=== PATIENT | female | born 1965 | race Caucasian/White ===

== ENCOUNTER → 2016-11-07 | Outpatient (CLI) | payer MEDICAID ==
[~2016-11-07] MED LIST: ATRV10T; CARI350T27; DIAZ5TAB3; METH10TA8; PREN1TAB4; PROP-33; TRAM50TA2
--- NOTE | 2016-11-07 20:03 | Diagnostic Imaging Report ---
EXAMINATION: Transabdominal and transvaginal pelvic ultrasound. INDICATION: Abnormal uterine bleeding. FINDINGS: The uterus is 6.5 x 4.1 x 3.6 cm. The endometrial stripe is 0.5 cm in thickness. The myometrium demonstrates no discrete focal lesion. The right ovary is 2.1 x 2.1 x 1.2 cm. The left ovary is 3.3 x 3.8 x 2.5 cm. Within the left ovary, there is a septated hypoechoic lesion measuring 3.4 x 2.1 x 2.6 cm, likely related to a hemorrhagic cyst. Arterial and venous waveforms are demonstrated over both ovaries. IMPRESSION: 3.4 cm hypoechoic lesion is seen in the left ovary, likely representing a hemorrhagic cyst. Dictated by: Dictated on workstation # [id number]
--- NOTE | 2016-11-08 19:23 | Diagnostic Imaging Report ---
Bilateral screening mammogram 2D views with tomosynthesis The current study was also evaluated with a Computer Aided Detection (CAD) system. Indication: Screening. No current complaints stated on the questionnaire. COMPARISON: 03/28/12. FINDINGS: The breasts are composed of heterogeneously dense parenchyma which may decrease mammographic sensitivity. There are clustered calcifications seen in the upper aspect of the right breast with slight architectural distortion concerning for underlying malignancy. The left breast demonstrates no definite change but is very dense. IMPRESSION: 1. Concerning calcifications and architectural distortion is seen in the upper aspect of the right breast. Focal compression view and ultrasound evaluation is recommended. 2. Also ultrasound evaluation of the left breast would be helpful based on its increased density. ACR BI-RADS Category 0: Incomplete. (Needs additional imaging evaluation). Result letter will be mailed to the patient. Note: At least 10% of breast cancer is not imaged by mammography. Dictated by: Dictated on workstation # [id number]
== END ==
LOC: RAD 12:58
PROVIDERS: ATTEND Nurse Practitioner
DX: Z12.31 Encounter for screening mammogram for malignant neoplasm of breast (principal); N83.9 Noninflammatory disorder of ovary, fallopian tube and broad ligament, unspecified; N93.9 Abnormal uterine and vaginal bleeding, unspecified
CPT/HCPCS: 76830; 76856; 77067

== ENCOUNTER → 2016-11-09 | Outpatient (CLI) | payer MEDICAID ==
--- NOTE | 2016-11-09 12:40 | Diagnostic Imaging Report ---
PROCEDURE: MR imaging of the brain without contrast. TECHNIQUE: Multiplanar, multisequence MR imaging of the brain was performed without contrast. INDICATION: Chronic migraine. Headache. FINDINGS: There is no diffusion restriction to suggest an acute infarct or other diffusion abnormality. There are minimal white matter T2 signal hyperintense lesions in the periventricular and deep white matter. No significant mass effect or brain edema. This may relate to chronic microvascular ischemic changes. There is no hydrocephalus. No extra-axial fluid collection is seen. The pituitary gland is normal in size. No hypothalamic or pineal region mass is seen. The central vascular flow-voids appear grossly unremarkable. The orbits and paranasal sinuses appear grossly unremarkable. IMPRESSION: White matter findings are probably secondary to mild chronic microvascular ischemic changes. Dictated by: Dictated on workstation # [id number]
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
== END ==
LOC: RAD 10:43
PROVIDERS: ATTEND Family Medicine
DX: M71.38 Other bursal cyst, other site; R51 Headache
CPT/HCPCS: 70551; 72148

== ENCOUNTER → 2016-11-24 | Outpatient (CLI) | payer MEDICAID ==
--- NOTE | 2016-11-24 10:42 | Diagnostic Imaging Report ---
EXAMINATION: Bilateral breast ultrasound. INDICATION: Architectural distortion in the upper aspect of the right breast and calcifications. Dense breasts on the left side. Technique: All four quadrants and the retroareolar region were examined on this study. FINDINGS: At the 6:00 zone in the left breast, 3 cm from the nipple there is an indeterminate hypoechoic lesion with no internal vascularity seen. This is measuring 5 mm in size. Etiology is indeterminate. No definitive through transmission. The left breast demonstrate otherwise no suspicious lesion with focally dilated duct or elongated small cyst at 1:30 o'clock position demonstrated. The right breast demonstrate an irregular hypoechoic poorly defined mass at 10:30 o'clock position 3 cm from the nipple. There is shadowing gas seen with no internal vascularity identified. IMPRESSION: 1. Right breast irregular poorly defined mass at 10:30 o'clock position at 3 cm from the nipple is concerning for malignancy. 2. Indeterminate 5 mm nodule in the left breast at 6:00 zone 3 cm from the nipple. Although this is not highly suspicious, the presence of a probable cancer on the contralateral side increases the risk for other malignancies and a biopsy of this lesion is also recommended. RECOMMENDATIONS: Bilateral ultrasound-guided biopsies. The findings and recommendations were discussed with the patient personally just before this dictation. BI-RADS 4C. ACR BI-RADS Category 4C: Moderate suspicion of malignancy. Report was faxed to office of Becki Evans by abelino at 10:44 a.m. Dictated by: Dictated on workstation # [id number]
--- NOTE | 2016-11-24 21:04 | Diagnostic Imaging Report ---
Right breast diagnostic mammogram with tomography. The current study was also evaluated with a Computer Aided Detection (CAD) system. INDICATION: Architectural distortion and calcification seen in the upper aspect of the right breast. FINDINGS: There is persistent architectural distortion concerning for underlying mass seen in the central slightly superior aspect of the right breast with slightly heterogenous microcalcifications seen. IMPRESSION: Concerning persistent architectural distortion in the central slightly superior aspect of the right breast. Ultrasound evaluation pending. ACR BI-RADS Category 0: Incomplete. (Needs additional imaging evaluation). Result letter will be mailed to the patient. Note: At least 10% of breast cancer is not imaged by mammography. Dictated by: Dictated on workstation # [id number]
== END ==
LOC: RAD 09:09
PROVIDERS: ATTEND Nurse Practitioner
DX: N63.10 Unspecified lump in the right breast, unspecified quadrant (principal); N63.20 Unspecified lump in the left breast, unspecified quadrant

== ENCOUNTER → 2016-11-28 | Outpatient (CLI) | payer MEDICAID ==
[~2016-11-28] VITALS: Ht 172.7 cm; Wt 102.1 kg
[~2016-11-28] MED LIST changes: +LIDOCAINE 1% INJ 20 ML (XYLOCAINE) VIAL INJ ONE
[2016-11-28 10:53] VITALS: BP 138/90
--- NOTE | 2016-11-28 17:07 | Diagnostic Imaging Report ---
EXAMINATION: Ultrasound-guided biopsy of a breast mass. A metallic clip placed to elvira biopsy site. INDICATION: 10:30 right breast mass. CONSENT: Informed consent was obtained from the patient. The risks, benefits, potential complications and alternatives were reviewed and all questions answered to the patient's satisfaction. FINDINGS: Ultrasound images demonstrate a suspicious right breast mass. PROCEDURE: After sterile preparation and draping, 1% lidocaine was utilized for local anesthesia. A 13-gauge guide needle was introduced under live ultrasound guidance to the level of the lesion. Good needle position was documented with ultrasound images. 14-gauge biopsy needle was utilized and core biopsies were performed. Multiple samples were obtained and sent to pathology. A metallic clip was placed to elvira the site of the biopsy. A subsequent mammogram is performed and confirms the proper positioning of the clip. The patient tolerated the procedure well with no immediate complications. IMPRESSION: Successful ultrasound-guided core biopsy of 10:30 right breast mass. Dictated by: Dictated on workstation # [id number]
--- NOTE | 2016-11-28 17:08 | Diagnostic Imaging Report ---
EXAMINATION: Vacuum-assisted ultrasound-guided biopsy of breast mass left. A metallic clip placed to elvira biopsy site. INDICATION: Left breast mass. CONSENT: Informed consent was obtained from the patient. The risks, benefits, potential complications and alternatives were reviewed and all questions answered to the patient's satisfaction. FINDINGS: Ultrasound images demonstrate left breast mass at 6:00 zone, 3 CM from the nipple. PROCEDURE: After sterile preparation and draping, 1% lidocaine was utilized for local anesthesia. A vacuum-assisted biopsy device with 14-gauge needle was introduced under live ultrasound guidance into the lesion. Good needle position was documented with ultrasound images. A metallic clip was placed to elvira the site of the biopsy. A subsequent mammogram is performed and confirms the proper positioning of the clip. Multiple samples were obtained and sent to pathology. The patient tolerated the procedure well with no immediate complications. IMPRESSION: Successful ultrasound-guided biopsy of 6:00 left breast mass at 2-3 CM from the nipple. A metallic clip placed to elvira biopsy site. Dictated by: Dictated on workstation # [id number]
--- NOTE | 2016-11-28 20:17 | Diagnostic Imaging Report ---
Bilateral diagnostic mammogram. INDICATION: Documentation of clip position after ultrasound-guided biopsy in both breasts. The current study was also evaluated with a Computer Aided Detection (CAD) system. FINDINGS: In the right breast there is a clip marking the area of biopsy performed by ultrasound and it does correspond to the region of abnormality on mammography with increased density and abnormal calcifications. On the left side, the lesion was seen only on sonography with the marking clip corresponds to a central slightly inferior aspect of the left breast. IMPRESSION: Satisfactory clip placement after ultrasound-guided biopsy bilaterally. Pathology results are pending. ACR BI-RADS Category 0: Incomplete. (Needs additional imaging evaluation). Result letter will be mailed to the patient. Note: At least 10% of breast cancer is not imaged by mammography. Dictated by: Dictated on workstation # [id number]
== END ==
LOC: RAD 10:25
PROVIDERS: ATTEND Nurse Practitioner
DX: N63.10 Unspecified lump in the right breast, unspecified quadrant (principal); N63.20 Unspecified lump in the left breast, unspecified quadrant
CPT/HCPCS: 19083; 77066

== ENCOUNTER → 2016-12-12 | Outpatient (CLI) | payer MEDICAID ==
[~2016-12-12] MED LIST changes: +GADOBUTROL 10 MMOL/10 ML (GADAVIST) VIAL IV ONE; -LIDOCAINE 1% INJ 20 ML (XYLOCAINE) VIAL INJ ONE
[2016-12-12 09:37] LABS: CREATININE SERUM 1.04 MG/DL (0.60-1.30)
--- NOTE | 2016-12-14 14:35 | Diagnostic Imaging Report ---
TECHNIQUE: Utilizing 1.5 Shelia magnet, patient was placed in a prone position with 8-channel dual breast coil utilized. Axial STIR precontrasted image and axial T1 fat-sat postcontrast high-resolution images obtained. Sagittal T2-weighted images precontrast, bilaterally, as well. Sagittal vibrant temporal images were obtained pre and post contrast with bolus technique utilized of gadolinium. Images are postcontrast immediately and subsequently for 7 minutes. Pre and post contrasted images are then evaluated with [employer] for evaluation of possible angiogenesis. INDICATION: Breast cancer COMPARISON: November 28, 2016, November 24, 2016, and October 28, 2016. FINDINGS: The bilateral breasts demonstrate moderate background glandularity. The bilateral breasts demonstrate moderate background enhancement. No significant axillary or internal mammary adenopathy. A 2.7 x 2.8 cm spiculated mass with irregular margins and washout kinetics is identified within the middle to posterior depth of the right breast at 12:00 o'clock. This is consistent with the patient's known biopsy proven carcinoma. No additional suspicious mass or non-mass enhancement within the right breast. A 2.4 x 1.0 cm region of non-mass enhancement is noted within the middle to posterior depth of the left breast, central to the nipple, extending into the 12:00 o'clock region. This demonstrates lobulated margins. The also demonstrates mixed kinetics, including central washout. An additional 0.6 cm enhancing lesion is seen 1 cm inferolateral to the prominent region of non-mass enhancement. This is remote from recently biopsied lesion within the left breast. No additional suspicious mass or non-mass enhancement within the left breast. IMPRESSION: There is a 2.4 x 1.0 cm region of non-mass enhancement within the left breast central to the nipple extending to the 12:00 o'clock region with an additional 0.6 cm enhancing lesion 1 cm inferolateral, indeterminate. Recommend Second Look ultrasound for further evaluation. If this area is not visualized on Second Look ultrasound, an MR guided biopsy would then be indicated. Known malignancy within the right breast at 12:00 o'clock without additional malignancy within the right breast. No pathologically enlarged axillary or internal mammary lymph nodes are seen. BI-RAD category 0. Incomplete, needs additional imaging FOLLOWUP: 1. A Second Look ultrasound of the left breast to further evaluate the non-mass enhancement, as described above. If this is not visualized on Second Look ultrasound, then an MRI guided biopsy would be indicated. 2. Continued surgical consultation for known right breast carcinoma. Dictated by: Dictated on workstation # [id number]
== END ==
LOC: RAD 09:09
PROVIDERS: ATTEND Surgery
DX: C50.912 Malignant neoplasm of unspecified site of left female breast (principal)
CPT/HCPCS: 36415; 77059; 82565; 84520

== ENCOUNTER 2017-02-15 13:15 | Outpatient (CLI) | payer MEDICAID ==
[~2017-02-15] VITALS: Ht 172.7 cm; Wt 102.1 kg
[~2017-02-15 13:15] MED LIST changes: -GADOBUTROL 10 MMOL/10 ML (GADAVIST) VIAL IV ONE
[2017-02-15] MEDS ORDERED: methylPREDNISolone 80 MG/ML (DEPO MEDROL) VIAL ONE (13:34)
[2017-02-15 14:19] VITALS: BP 121/62
[2017-02-15] MEDS ORDERED: DEXAMETHASONE 10 MG/ML (DECADRON) 1 ML VIAL ONE (15:01)
[2017-02-15 15:08] VITALS: BP 123/105
--- NOTE | 2017-02-17 04:09 | OPERATIVE REPORT ---
DATE OF SERVICE: 02/15/2017 DIAGNOSIS: Lumbar radiculopathy. PROCEDURE: Fluoroscopic guided interlaminar epidural steroid injection. PROCEDURE IN DETAIL: After obtaining informed consent from the patient, the patient's chart was reviewed. The patient was then brought to the procedure room and placed in the prone position. A timeout was performed. The back was prepped with antiseptic solution and under fluoro guidance, the patient's lumbar spine was identified at the level of L5-S1. The L5-S1 vertebra was identified with fluoro guidance and approximately 2 mL of 1.5% lidocaine solution was used to anesthetize the skin directly down to the pedicle of the L5-S1 and under fluoroscopic guidance, the tract was anesthetized up to the interlaminar space and the ligamentum flavum. This needle was withdrawn. Then, a 20-gauge 3.5 inch Tuohy needle was then directed following the same tract that was anesthetized with the spinal needle. Using loss of resistance, the epidural space was identified and then the syringe was switched for contrast solution which was injected, approximately 1 mL. After secondary confirmation of epidural access, another syringe was placed and 80 mg of Depo-Medrol was injected. The Tuohy needle was then flushed out with approximately 2 mL of the normal saline used from the loss of resistance syringe. Band-Aids were applied to all the procedure sites. The patient tolerated the procedure well and was taken to the recovery room in stable condition. COMPLICATIONS: None. Job ID: [id number] DocumentID: [id number] Dictated Date: 02/16/2017 19:11:34 Hitcher Date: 02/17/2017 04:08:35 Dictated By: GREGORIO EATON DO
== END 2017-02-15 15:09 | disposition home or self-care (01) ==
LOC: CARD 13:15
PROVIDERS: ATTEND Pain Medicine Interventional Pain Medicine
DX: M54.16 Radiculopathy, lumbar region (principal)
CPT/HCPCS: 64483

== ENCOUNTER → 2017-03-23 | Outpatient (CLI) | payer MEDICAID ==
[~2017-03-23] MED LIST changes: +BARIUM SUSPENSION 2.1% (VANILLA SILQ) 450 ML PO ONE; +CATHETER FLUSH 10 ML SYR IV PRN; +IOHEXOL 350 MG/ML 100 ML (OMNIPAQUE 350) VIAL IV ONE; +NS 250 ML (IVPB) BAG IV ONE
--- NOTE | 2017-03-23 12:21 | Diagnostic Imaging Report ---
PROCEDURE: CT chest with contrast, CT abdomen and pelvis with and without contrast. TECHNIQUE: Pre and post intravenous contrast axial imaging of the abdomen and pelvis and post contrast axial imaging of the chest were performed. INDICATION: Breast carcinoma. Comparison is made with prior CT of the abdomen and pelvis performed on 02/27/2008. CT chest: FINDINGS: No axillary lymphadenopathy is seen. No hilar or mediastinal lymphadenopathy is identified. No pericardial or pleural fluid is detected. Centrilobular emphysematous changes are identified in both lungs. Tiny subpleural nodule in right upper lobe is seen, image 22. There is some scarring or atelectasis in the lingula. No infiltrates are seen. IMPRESSION: Emphysematous changes. No parenchymal mass or mediastinal lymphadenopathy is identified. CT abdomen and pelvis: FINDINGS: Liver is without evidence of a discrete mass. The gallbladder is surgically absent. Pancreas and spleen are unremarkable. Surgical clips near the GE junction are noted. No adrenal mass is detected. The kidneys are unremarkable. Aorta is calcified but nonaneurysmal. No central, retroperitoneal or mesenteric lymphadenopathy is seen. There is a small fat-containing umbilical hernia. There is no ascites. Bowel loops are normal caliber. The bladder, uterus and both ovaries are unremarkable. No inguinal or iliac lymphadenopathy is detected. IMPRESSION: Essentially unremarkable CT of the abdomen and pelvis. No abdominal lymphadenopathy or evidence of metastatic disease is detected. Dictated by: Dictated on workstation # [id number]
--- NOTE | 2017-03-23 15:09 | Diagnostic Imaging Report ---
INDICATION: Right breast carcinoma. TECHNIQUE: The patient was administered 25.9 mCi of technetium 99m MDP intravenously and whole body imaging was performed after a three-hour delay. COMPARISON: No prior whole body bone scans are available for comparison. FINDINGS: There is normal uptake of activity by the axial and appendicular skeleton. There is normal uptake of activity by the kidneys with excretion into the urinary bladder. No abnormal foci of tracer accumulation are seen to suggest occult fracture or osseous metastatic disease. IMPRESSION: Normal whole body bone scan with no scintigraphic evidence of osseous metastatic disease. Dictated by: Dictated on workstation # [id number]
== END ==
LOC: CARD 10:43
PROVIDERS: ATTEND Internal Medicine Hematology & Oncology
DX: C50.411 Malignant neoplasm of upper-outer quadrant of right female breast (principal)
CPT/HCPCS: 71260; 74178; 78306

== ENCOUNTER → 2017-03-30 | Outpatient (CLI) | payer MEDICAID ==
[~2017-03-30] MED LIST changes: -BARIUM SUSPENSION 2.1% (VANILLA SILQ) 450 ML PO ONE; -CATHETER FLUSH 10 ML SYR IV PRN; -IOHEXOL 350 MG/ML 100 ML (OMNIPAQUE 350) VIAL IV ONE; -NS 250 ML (IVPB) BAG IV ONE
--- NOTE | 2017-03-30 09:42 | Diagnostic Imaging Report ---
INDICATION: Breast lesions, abnormal MRI. COMPARISON: MRI dated 11/28/2016 FINDINGS: There is a bilobed cyst with posterior acoustic enhancement 12 o'clock retroareolar region measuring 7 x 5 mm. A second area is more superficial at the 3 o'clock retroareolar region measuring 6 mm. Doubtful these correlate with the MRI findings. Recommend reevaluation with MRI and MR guided biopsy of the suspicious area of enhancement. There is no abnormal blood flow. Since the patient has a known right-sided breast cancer the MRI results are inconclusive both these areas may be percutaneously aspirated and/or biopsied. IMPRESSION: 2 separate lesions in the left breast as described above doubtful these represent the MRI findings. Recommend reevaluation with MRI and biopsy of the area of abnormal enhancement. BI-RADS category 0. Dictated by: Dictated on workstation # [id number]
== END ==
LOC: RAD 08:14
PROVIDERS: ATTEND Surgery
DX: C50.911 Malignant neoplasm of unspecified site of right female breast (principal); N60.02 Solitary cyst of left breast
CPT/HCPCS: 76641

== ENCOUNTER 2017-04-05 13:56 | Outpatient (RCR) | payer MEDICAID ==
[2017-03-15 14:00] LABS: BASOPHILS # (AUTO) 0.1 10^3/uL (0.0-0.1); BASOPHILS % (AUTO) 1 % (0-10); EOSINOPHILS % (AUTO) 0 % (0-10); HEMATOCRIT 45 % (35-52); HEMOGLOBIN 15.5 G/DL (11.5-16.0); LYMPHOCYTES # (AUTO) 2.1 X 10^3 (1.0-4.0); LYMPHOCYTES % (AUTO) 22 % (12-44); MEAN CORPUSCULAR HEMOGLOBIN 33 PG (25-34); MEAN CORPUSCULAR HGB CONC 34 G/DL (32-36); MEAN CORPUSCULAR VOLUME 95 FL (80-99); MEAN PLATELET VOLUME 10.5 FL (7.4-10.4); MONOCYTES # (AUTO) 0.6 X 10^3 (0.0-1.0); MONOCYTES % (AUTO) 7 % (0-12); NEUTROPHILS # (AUTO) 6.9 X 10^3 (1.8-7.8); NEUTROPHILS % (AUTO) 71 % (42-75); PLATELET COUNT 302 10^3/uL (130-400); RED BLOOD COUNT 4.74 10^6/uL (4.35-5.85); RED CELL DISTRIBUTION WIDTH 13.4 % (10.0-14.5); WHITE BLOOD COUNT 9.7 10^3/uL (4.3-11.0)
[2017-03-15 14:18] LABS: ALANINE AMINOTRANSFERASE 18 U/L (0-55); ALBUMIN 3.8 GM/DL (3.2-4.5); ALKALINE PHOSPHATASE 69 U/L (40-136); BILIRUBIN,TOTAL 0.3 MG/DL (0.1-1.0); BUN/CREATININE RATIO 11; CALCIUM 9.5 MG/DL (8.5-10.1); CARBON DIOXIDE 27 MMOL/L (21-32); CHLORIDE 104 MMOL/L (98-107); CREATININE SERUM 0.97 MG/DL (0.60-1.30); GFR ESTIMATED > 60; GLUCOSE 105 MG/DL (70-105); POTASSIUM 4.5 MMOL/L (3.6-5.0); SODIUM 141 MMOL/L (135-145); TOTAL PROTEIN 7.1 GM/DL (6.4-8.2)
== END 2017-05-30 | disposition home or self-care (01) ==
LOC: ONC 13:56
PROVIDERS: ATTEND Internal Medicine Hematology & Oncology
DX: C50.411 Malignant neoplasm of upper-outer quadrant of right female breast (principal); F41.9 Anxiety disorder, unspecified; F32.9 Major depressive disorder, single episode, unspecified; F17.210 Nicotine dependence, cigarettes, uncomplicated; Z17.0 Estrogen receptor positive status [ER+]; Z79.899 Other long term (current) drug therapy
CPT/HCPCS: 36415; 80053; 85025; 99213

== ENCOUNTER → 2017-06-14 | Outpatient (CLI) | payer MEDICAID ==
[~2017-06-14] MED LIST changes: +CATHETER FLUSH 10 ML SYR IV PRN; +IOHEXOL 350 MG/ML 100 ML (OMNIPAQUE 350) VIAL IV ONE; +NS 250 ML (IVPB) BAG IV ONE; +RECEIVED CONTRAST (Hold Metformin) IV SCH
[2017-06-14 15:32] LABS: BASOPHILS % (AUTO) 0 % (0-10); EOSINOPHILS # (AUTO) 0.1 10^3/uL (0.0-0.3); EOSINOPHILS % (AUTO) 1 % (0-10); HEMATOCRIT 44 % (35-52); LYMPHOCYTES # (AUTO) 2.2 X 10^3 (1.0-4.0); LYMPHOCYTES % (AUTO) 20 % (12-44); MEAN CORPUSCULAR HEMOGLOBIN 32 PG (25-34); MEAN CORPUSCULAR HGB CONC 34 G/DL (32-36); MEAN CORPUSCULAR VOLUME 94 FL (80-99); MEAN PLATELET VOLUME 10.1 FL (7.4-10.4); MONOCYTES # (AUTO) 0.7 X 10^3 (0.0-1.0); MONOCYTES % (AUTO) 6 % (0-12); NEUTROPHILS % (AUTO) 73 % (42-75); PLATELET COUNT 309 10^3/uL (130-400); RED BLOOD COUNT 4.74 10^6/uL (4.35-5.85); RED CELL DISTRIBUTION WIDTH 13.3 % (10.0-14.5)
[2017-06-14 15:52] LABS: BUN/CREATININE RATIO 15; CREATININE SERUM 0.91 MG/DL (0.60-1.30); GFR ESTIMATED > 60
--- NOTE | 2017-06-14 16:49 | Diagnostic Imaging Report ---
PROCEDURE: CT angiography of the chest with contrast. TECHNIQUE: Multiple contiguous axial images were obtained through the chest after uneventful bolus administration of intravenous contrast. Reconstructed CTA MIP acquisitions were also performed. INDICATION: Breast cancer, shortness of breath. FINDINGS: There are no intraluminal pulmonary arterial filling defects. There are no findings of pulmonary arterial embolus. The patent thoracic aorta is nonaneurysmal. No mural hemorrhage, dissection or vessel rupture. There is air trapping and features of centrilobular emphysema most pronounced in the lung periphery and pulmonary apices but involving all five lobes. No lung mass or suspicious nodule. No acute infiltrate, edema or failure pattern. No acute soft tissue or osseous chest wall disease. There is no thoracic lymphadenopathy. The upper abdomen reveals no acute finding. IMPRESSION: Negative for PE or other acute chest pathology. Centrilobular emphysema, otherwise normal. Dictated by: Dictated on workstation # [id number]
== END ==
LOC: RAD 15:16
PROVIDERS: ATTEND Nurse Practitioner Family
DX: C50.919 Malignant neoplasm of unspecified site of unspecified female breast (principal); J43.9 Emphysema, unspecified; J45.909 Unspecified asthma, uncomplicated; F17.200 Nicotine dependence, unspecified, uncomplicated
CPT/HCPCS: 36415; 71275; 82565; 84520; 85025

== ENCOUNTER → 2017-06-20 | Outpatient (CLI) | payer MEDICAID ==
[~2017-06-20] MED LIST changes: -CATHETER FLUSH 10 ML SYR IV PRN; -IOHEXOL 350 MG/ML 100 ML (OMNIPAQUE 350) VIAL IV ONE; -NS 250 ML (IVPB) BAG IV ONE; -RECEIVED CONTRAST (Hold Metformin) IV SCH; +RT-ALBUTEROL SULF 2.5 MG/3 ML PRE-MIX VIAL INH ONE; +RT-ALBUTEROL SULF 2.5 MG/3 ML PRE-MIX VIAL ONE
== END ==
LOC: RT 08:23
PROVIDERS: ATTEND Nurse Practitioner Family
DX: J45.909 Unspecified asthma, uncomplicated (principal)
CPT/HCPCS: 94060; 94726; 94729

== ENCOUNTER → 2017-06-26 | Outpatient (CLI) | payer MEDICAID ==
[~2017-06-26] MED LIST changes: -RT-ALBUTEROL SULF 2.5 MG/3 ML PRE-MIX VIAL INH ONE; -RT-ALBUTEROL SULF 2.5 MG/3 ML PRE-MIX VIAL ONE
[2017-06-26 13:03] LABS: ABG BASE EXCESS 4.7 MMOL/L (-2.5-2.5); ABG OXYGEN SATURATION 96 % (94-100); ABG PCO2 44 MMHG (35-45); ABG PH 7.43 (7.37-7.43); ABG PO2 70 MMHG (79-93); ABG TCO2 30.1 MMOL/L (21.0-31.0)
[2017-06-26 13:04] LABS: ALLENS TEST YES-POS; INSPIRED O2 2L; PATIENT TEMP 98.5; VENTILATOR NO
== END ==
LOC: LAB 12:13
PROVIDERS: ATTEND Nurse Practitioner Family
DX: J02.9 Acute pharyngitis, unspecified (principal); B37.0 Candidal stomatitis
CPT/HCPCS: 36600; 82805; 87430

== ENCOUNTER 2017-07-13 08:40 | Outpatient (RCR) | payer MEDICAID | END 2017-09-04 | disposition home or self-care (01) | LOC: ONC 08:40 | PROVIDERS: ATTEND Internal Medicine Hematology & Oncology | DX: C50.411 Malignant neoplasm of upper-outer quadrant of right female breast (principal); F41.9 Anxiety disorder, unspecified; F32.9 Major depressive disorder, single episode, unspecified; F17.210 Nicotine dependence, cigarettes, uncomplicated; Z17.0 Estrogen receptor positive status [ER+]; Z79.899 Other long term (current) drug therapy | CPT/HCPCS: 99204; 99213 ==

== ENCOUNTER 2017-12-21 13:42 | Outpatient (RCR) | payer MEDICAID | END 2018-02-18 | disposition home or self-care (01) | LOC: ONC 13:42 | PROVIDERS: ATTEND Internal Medicine Hematology & Oncology | DX: Z51.0 Encounter for antineoplastic radiation therapy (principal); C50.411 Malignant neoplasm of upper-outer quadrant of right female breast; F41.9 Anxiety disorder, unspecified; F32.9 Major depressive disorder, single episode, unspecified; F17.210 Nicotine dependence, cigarettes, uncomplicated; Z17.0 Estrogen receptor positive status [ER+]; Z79.899 Other long term (current) drug therapy | CPT/HCPCS: 77290; 77295; 77300; 77307; 77334; 77336; 77417; 99213 ==

== ENCOUNTER → 2018-01-18 | Outpatient (CLI) | payer MEDICAID ==
[2018-01-18 13:48] LABS: ALANINE AMINOTRANSFERASE 12 U/L (0-55); ALBUMIN 3.4 GM/DL (3.2-4.5); ALKALINE PHOSPHATASE 70 U/L (40-136); BILIRUBIN,TOTAL 0.3 MG/DL (0.1-1.0); BUN/CREATININE RATIO 14; CALCIUM 8.8 MG/DL (8.5-10.1); CARBON DIOXIDE 23 MMOL/L (21-32); CHLORIDE 106 MMOL/L (98-107); CREATININE SERUM 0.83 MG/DL (0.60-1.30); GFR ESTIMATED > 60; GLUCOSE 106 MG/DL (70-105); SODIUM 139 MMOL/L (135-145)
--- NOTE | 2018-01-18 15:57 | Diagnostic Imaging Report ---
INDICATION: Leg pain and swelling. EXAMINATION: Ultrasound, non-invasive. Routine images of the lower extremities were obtained. FINDINGS: The ankle-brachial index on the right is 1.07 and on the left 1.02 (normal 1.00 or greater). IMPRESSION: The ankle-brachial indices are within normal limits. Dictated by: Dictated on workstation # [id number]
--- NOTE | 2018-01-18 16:47 | Diagnostic Imaging Report ---
PROCEDURE: US left lower extremity venous. TECHNIQUE: Multiple real-time grayscale images were obtained over the left lower extremity in various projections. Additional duplex Doppler and color Doppler images were also obtained. INDICATION: Leg pain. FINDINGS: There are no prior studies available for comparison. There is generally good blood flow and compressibility at all levels. There is no evidence for deep venous thrombosis. IMPRESSION: There is no evidence for a deep venous thrombosis of the left lower extremity. Dictated by: Dictated on workstation # [id number]
== END ==
LOC: RAD 13:13
PROVIDERS: ATTEND Family Medicine
DX: I89.0 Lymphedema, not elsewhere classified (principal); I50.30 Unspecified diastolic (congestive) heart failure; M79.605 Pain in left leg
CPT/HCPCS: 36415; 80053; 83880; 93922

== ENCOUNTER 2018-05-24 21:52 | Inpatient (IN) | payer MEDICAID | END 2018-06-07 13:05 | disposition home or self-care (01) | LOC: ICU 05-25 01:10 → 4TH 05-28 15:20 → ER 21:52 → 4TH 05-30 09:26 | DX: J96.21 Acute and chronic respiratory failure with hypoxia (principal); J44.1 Chronic obstructive pulmonary disease with (acute) exacerbation; J44.0 Chronic obstructive pulmonary disease with (acute) lower respiratory infection; J18.1 Lobar pneumonia, unspecified organism; L03.116 Cellulitis of left lower limb; Z68.41 Body mass index [BMI] 40.0-44.9, adult; E66.9 Obesity, unspecified; I87.8 Other specified disorders of veins; F17.210 Nicotine dependence, cigarettes, uncomplicated; I10 Essential (primary) hypertension; E78.00 Pure hypercholesterolemia, unspecified; G62.9 Polyneuropathy, unspecified; E03.9 Hypothyroidism, unspecified; M19.91 Primary osteoarthritis, unspecified site; G89.4 Chronic pain syndrome; M54.9 Dorsalgia, unspecified; F41.9 Anxiety disorder, unspecified; F32.9 Major depressive disorder, single episode, unspecified; Z91.14 Patient's other noncompliance with medication regimen; Z99.81 Dependence on supplemental oxygen; Z85.3 Personal history of malignant neoplasm of breast; Z92.3 Personal history of irradiation ==

== ENCOUNTER → 2018-08-05 | Outpatient (CLI) | payer MEDICAID ==
[~2018-08-05] MED LIST changes: +ALBU10PO; +ALBU2.5V4 NEB; +ANAS1TAB7 PO; +CARI350T27 PO; +DEXL60CA PO; +DIAZ10TA3 PO; +ESOM20CA58 PO; +FLUT16SP22 NS; +FLUT1DIS26 INH; +FURO40TA4 PO; +HOLD METFORMIN - RECEIVED CONTRAST 20 ML VIAL IV SCH; +HYDR-87 PO; +IOHEXOL 350 MG/ML 100 ML (OMNIPAQUE 350) VIAL IV ONE; +LEVO50TA6 PO; +MAGN400T6 PO; +NORT50CA PO; +NS 100 ML (IVPB) BAG IV ONE; +POTA20TA15 PO; +PRED10TA22 PO; +PROAIR; +RT-ALBUINH IH; +RT-ALBUINH INH
[2018-08-05 08:54] LABS: BUN/CREATININE RATIO 12; CREATININE SERUM 0.73 MG/DL (0.60-1.30); GFR ESTIMATED > 60
--- NOTE | 2018-08-05 09:43 | Diagnostic Imaging Report ---
PROCEDURE: CT chest with contrast only. TECHNIQUE: Multiple contiguous axial images were obtained through the chest after administration of intravenous contrast. Auto Exposure Controls were utilized during the CT exam to meet ALARA standards for radiation dose reduction. INDICATION: Breast carcinoma status post right mastectomy. Patient also has COPD. COMPARISON: Correlation is made with prior CT chest from 05/25/2018. FINDINGS: No axillary lymphadenopathy is identified. There appears to be low-density collection in the right breast, perhaps from prior surgery. This is similar to prior exam. No mediastinal or hilar lymphadenopathy is detected. No pericardial or pleural fluid is identified. Severe emphysematous changes throughout both lungs are again noted. Previously seen nodular infiltrates in the right middle lobe persists but do appear to be improved when compared with prior. There is a persistent slightly nodular density which measures 9 mm compared with 14 mm on prior. Lower lung rodriges appear to be well aerated. Lingula is clear. Left upper lobe is clear. The upper abdomen is unremarkable. The bony structures are nonacute. IMPRESSION: 1. Severe emphysematous changes. There has been improved aeration of both lungs since CT study two months earlier. There is some mild residual nodular opacities in the right middle lobe. However these appear to be improving. Followup in six months would be useful to confirm stability. No new abnormality is detected. Dictated by: Dictated on workstation # [id number]
== END ==
LOC: RAD 08:20
PROVIDERS: ATTEND Nurse Practitioner Family
DX: C50.919 Malignant neoplasm of unspecified site of unspecified female breast (principal); J43.9 Emphysema, unspecified; J45.909 Unspecified asthma, uncomplicated; J96.21 Acute and chronic respiratory failure with hypoxia; Z90.11 Acquired absence of right breast and nipple
CPT/HCPCS: 36415; 71260; 82565; 84520